=== PATIENT | male | born 1955 | race Caucasian/White ===

== ENCOUNTER → 2017-10-07 | Outpatient (CLI) | payer OTHER | LOC: CIMAGING 08:12 | PROVIDERS: ATTEND Physician Assistant | DX: Z13.6 Encounter for screening for cardiovascular disorders (principal) | CPT/HCPCS: 75571-PO ==

== ENCOUNTER → 2018-05-22 | Outpatient (CLI) | payer BC | LOC: CIMAGING 12:02 | PROVIDERS: ATTEND Physician Assistant | DX: E04.2 Nontoxic multinodular goiter (principal); I25.10 Atherosclerotic heart disease of native coronary artery without angina pectoris; I70.0 Atherosclerosis of aorta | CPT/HCPCS: 71250-PO; 76536-PO ==

== ENCOUNTER → 2018-07-31 | Outpatient (CLI) | payer OTHER, BC | LOC: FIMAGING 10:41 | PROVIDERS: ATTEND Physician Assistant | DX: R07.81 Pleurodynia (principal); R05 Cough; F17.200 Nicotine dependence, unspecified, uncomplicated ==